=== PATIENT | female | born 1960 | race African-American/Black ===

== ENCOUNTER 2018-07-21 19:49 | Emergency (ER) | payer OTHER ==
[~2018-07-21] VITALS: Ht 170.2 cm; Wt 113.4 kg
[~2018-07-21 19:49] MED LIST: IBUPROFEN 800800 M1 PO; IRON PO; MICARDIS HCT 81 EAC1 PO; MICARDIS HCT 81 EACH; NORCO 5-325 TA1 EACH PO; ZPAK PO; unknown bp med
[2018-07-21 19:52] VITALS: BP 186/106
[2018-07-21] MEDS ORDERED: AMOXICILLIN 50500 MG PO (20:36)
== END 2018-07-21 20:46 | disposition home or self-care (01) ==
LOC: ER 19:49
DX: J02.9 Acute pharyngitis, unspecified (principal); I10 Essential (primary) hypertension; E66.9 Obesity, unspecified; Z68.39 Body mass index [BMI] 39.0-39.9, adult; Z86.2 Personal history of diseases of the blood and blood-forming organs and certain disorders involving the immune mechanism